=== PATIENT | male | born 1980 | race Caucasian/White ===

== ENCOUNTER 2022-05-19 13:46 | Emergency (ER) | payer MEDICAID ==
[2022-05-19] MEDS ORDERED: buprenorphine/naloxone 8MG-2MG SUBlingual film SL ONE (14:40)
== END 2022-05-19 15:00 ==
LOC: ER 13:46
DX: F11.23 Opioid dependence with withdrawal (principal); F19.90 Other psychoactive substance use, unspecified, uncomplicated
CPT/HCPCS: 99281; 99283

== ENCOUNTER 2022-09-26 12:58 | Emergency (ER) | payer MEDICAID ==
[~2022-09-26] VITALS: Ht 180.3 cm; Wt 77.3 kg
[2022-09-26 13:26] VITALS: BP 148/94
[2022-09-26] MEDS ORDERED: BUPR1FIL3 SL (13:52)
--- NOTE | 2022-09-26 14:06 | NUR ---
Met with patient in regards to prescription for Suboxone. Patient has been on Suboxone for a year and needs another prescription. Patient is changing MAT providers and needs a prescription until he is seen. I gave patient information for [facility] and for Dr Caicedo at [facility]. I talked to his provider Alexandra Slade and she will give him the RX for a week. Patient has my card and will call me if he has any questions.
== END 2022-09-26 14:07 | disposition home or self-care (01) ==
LOC: ER 12:58
DX: F11.20 Opioid dependence, uncomplicated (principal); F17.200 Nicotine dependence, unspecified, uncomplicated; Z79.899 Other long term (current) drug therapy
CPT/HCPCS: 99283

== ENCOUNTER 2022-11-01 08:14 | Emergency (ER) | payer MEDICAID ==
[~2022-11-01] VITALS: Ht 180.3 cm; Wt 81.0 kg
[2022-11-01 08:29] VITALS: BP 133/84
[2022-11-01] MEDS ORDERED: buprenorphine/naloxone 8MG-2MG SUBlingual film SL STA (10:02)
[2022-11-02] MEDS ORDERED: BUPR1FIL3 SL ×2 (09:09→09:36)
[2022-11-02] MEDS ORDERED: BUPR1TAB45 SL (09:40)
== END 2022-11-01 10:49 | disposition home or self-care (01) ==
LOC: ER 08:14
DX: F11.20 Opioid dependence, uncomplicated (principal)
CPT/HCPCS: 99283

== ENCOUNTER 2022-11-02 08:17 | Emergency (ER) | payer MEDICAID ==
[~2022-11-02] VITALS: Ht 188 cm; Wt 86.4 kg
[2022-11-02 08:40] VITALS: BP 124/89
[2022-11-02] MEDS ORDERED: BUPR1FIL3 SL ×2 (09:09→09:36)
[2022-11-02] MEDS ORDERED: BUPR1TAB45 SL (09:40)
[2022-11-03] MEDS ORDERED: buprenorphine/naloxone 8MG-2MG SUBlingual film SL SCH (08:00)
== END 2022-11-02 10:21 | disposition home or self-care (01) ==
LOC: ER 08:25
DX: F11.90 Opioid use, unspecified, uncomplicated (principal); Z79.899 Other long term (current) drug therapy
CPT/HCPCS: 99283

== ENCOUNTER 2022-11-11 14:38 | Emergency (ER) | payer MEDICAID ==
[~2022-11-11] VITALS: Ht 180.3 cm; Wt 81.8 kg
[~2022-11-11 14:38] MED LIST: BUPR1TAB45 SL
[2022-11-11 14:46] VITALS: BP 122/79
--- NOTE | 2022-11-11 15:09 | NUR ---
Met with patient in regards to bridge program and to follow up on his appt with Elsa Mejia. Patient had intake appt today and will continue his MAT treatment there. Patient needs 1 day of Suboxone. I talked to Karri and we will dose him here.
[2022-11-11] MEDS ORDERED: BUPR1FIL3 SL (16:19)
== END 2022-11-11 16:31 | disposition home or self-care (01) ==
LOC: ER 14:39
DX: F11.99 Opioid use, unspecified with unspecified opioid-induced disorder (principal)
CPT/HCPCS: 99281

== ENCOUNTER 2024-04-02 17:09 | Inpatient (IN) | payer MEDICAID ==
[~2024-04-02] VITALS: Ht 180.3 cm; Wt 84.7 kg
[2024-04-02 21:15] VITALS: BP 127/78; PULSE 90; RESP 17; TEMP 98.3; O2SAT 98
[2024-04-02] MEDS ORDERED: BUPR1FIL20 SL (23:11)
[2024-04-02] MEDS ORDERED: mag hydrox/Alum hydrox/simeth 30ml oral suspension PO PRN (23:30)
[2024-04-02] MEDS ORDERED: magnesium hydroxide 30ml (MOM) UD suspension PO PRN (23:30)
[2024-04-02] MEDS ORDERED: acetaminophen 325mg tablet PO PRN (23:30)
[2024-04-02] MEDS ORDERED: loperamide 2mg capsule PO PRN (23:30)
[2024-04-02] MEDS: acetaminophen 325mg tablet PO PRN (23:55)
[2024-04-02] MEDS: NICOTINE POLACRILEX 2 MG LOZENGE BC PRN (23:56)
[2024-04-02] MEDS: buprenorphine/naloxone 8MG-2MG SUBlingual film SL SCH (23:56)
[2024-04-03 07:30] VITALS: BP 101/69; PULSE 87; RESP 16; TEMP 96.2; O2SAT 100
[2024-04-03 08:00] VITALS: BP 101/69; PULSE 87; RESP 16; TEMP 96.2; O2SAT 100
[2024-04-03 08:03] LABS: CHOL/HDL RATIO 2.1 (0.00-4.99); CHOLESTEROL 134 MG/DL (0-200); HDL CHOLESTEROL 65 MG/DL (35-60); LDL CHOLESTEROL 58 MG/DL (50-100); TRIGLYCERIDES 41 MG/DL (20-135)
[2024-04-03] MEDS: nicotine 21mg patch - 24 hr TD SCH (11:34)
[2024-04-03 15:32] VITALS: PULSE 98; RESP 16; O2SAT 98
[2024-04-03 19:00] VITALS: RESP 17; O2SAT 99
[2024-04-03 20:00] VITALS: BP 113/65; PULSE 84; RESP 17; TEMP 97.6; O2SAT 99
[2024-04-03] MEDS: traZODone 50mg tablet PO SCH (20:46)
[2024-04-03] MEDS: prazosin 1mg capsule PO SCH (20:46)
[2024-04-04 07:30] VITALS: BP 92/51; PULSE 56; RESP 18; TEMP 97.8; O2SAT 97
[2024-04-04] MEDS: ESCITALOPRAM 10 mg tablet 10 MG TABLET PO SCH (08:37)
[2024-04-04 08:45] VITALS: RESP 18; O2SAT 97
[2024-04-04] MEDS ORDERED: ondansetron 4mg rapidly disintigrating tab PO PRN (16:05)
[2024-04-04 19:00] VITALS: RESP 18; O2SAT 96
[2024-04-04 20:00] VITALS: BP 103/52; PULSE 60; RESP 18; TEMP 98.2; O2SAT 96
[2024-04-05 07:00] VITALS: BP 101/62; PULSE 70; RESP 16; TEMP 98.5; O2SAT 95
[2024-04-05] MEDS ORDERED: ESCI-8 PO (15:35)
[2024-04-05] MEDS ORDERED: NICO-687 TD (15:35)
[2024-04-05] MEDS ORDERED: NICO-907 BC (15:35)
[2024-04-05] MEDS ORDERED: TRAZ-251 PO (15:35)
[2024-04-05] MEDS ORDERED: PRAZ1CAP5 PO (15:41)
== END 2024-04-05 16:56 | disposition home or self-care (01) | DRG 751 ==
LOC: ADULT MH 17:09
PROVIDERS: ADMIT Psychiatry & Neurology Psychiatry; ATTEND Psychiatry & Neurology Psychiatry
DX: F33.2 Major depressive disorder, recurrent severe without psychotic features (principal); F19.10 Other psychoactive substance abuse, uncomplicated; F43.10 Post-traumatic stress disorder, unspecified; Z20.822 Contact with and (suspected) exposure to COVID-19; G47.00 Insomnia, unspecified; J45.909 Unspecified asthma, uncomplicated; F41.9 Anxiety disorder, unspecified; K21.9 Gastro-esophageal reflux disease without esophagitis; Z87.891 Personal history of nicotine dependence; Z79.899 Other long term (current) drug therapy
CPT/HCPCS: 36415; 80061; 83721; 87081; 94760

== ENCOUNTER 2025-04-26 11:04 | Emergency (ER) | payer MEDICAID ==
[~2025-04-26] VITALS: Ht 180.3 cm; Wt 79.5 kg
[~2025-04-26 11:04] MED LIST changes: +BUPR1FIL20 SL; -BUPR1TAB45 SL; +ESCI-8 PO; +NICO-687 TD; +NICO-907 BC; +PRAZ1CAP5 PO; +TRAZ-251 PO
[2025-04-26 11:19] VITALS: BP 129/84; PULSE 95; RESP 14; O2SAT 97
[2025-04-26] MEDS ORDERED: BUPR1FIL3 SL (13:03)
--- NOTE | 2025-04-26 13:03 | Physician Documentation ---
HPI ~ General Chief Complaint: Medication Request Stated Complaint: BRIDGE PROGRAM Time Seen by MD: 11:35 History of Present Illness HPI Comments Patient is seen today with complaints of opioid use disorder stating he has a clean date of March 06. Patient states he has used heroin for 30 years but has been clean from heroin for over 50 days now. Patient states his last dose of Suboxone was about two weeks ago and has already set up an appointment for MAC therapy with [facility] and just needs to be bridged until the appointment in three days. Patient states his cravings are high currently. Patient denies any chest pain or shortness of breath or abdominal pain or nausea, vomiting, diarrhea. Patient has no other concern or complaint at this time. Medication Reconciliation Allergies: Coded Allergies: Penicillins (Verified Allergy, Unknown, 04/02/24) Scheduled Buprenorphine HCl/Naloxone HCl (Buprenorphine-Nalox 8-2Mg Film), 1 SL TID, (Reported) Escitalopram Oxalate (Escitalopram Oxalate), 20 MG PO DAILY Nicotine 21 MG Patch* (Habitrol 21 MG Patch*), 1 PATCH TD DAILY Prazosin Hcl (Prazosin Hcl), 1 MG PO HS Trazodone HCl (Trazodone HCl), 100 MG PO HSMR1 Scheduled PRN Nicotine Polacrilex (Nicotine Lozenge), 2 MG BC Q2H PRN for NICOTINE CRAVING Past Medical History Past Medical History: No Pertinent History Past Surgical History: noncontributory Alcohol Use: None Drug Use: none, other Lives with: S/O Lives In: Home Occupation: other Review of Systems Constitutional: Denies: chills, fever, weakness Eyes: Denies: pain, blurred vision ENT: Denies: ear pain, nose pain, throat pain, mouth pain Respiratory: Denies: cough, shortness of breath Cardiovascular: Denies: chest pain, palpitations Gastrointestinal: Denies: abdominal pain, nausea, vomiting Genitourinary: Denies: burning, dysuria Male Genitalia: Denies: penile discharge, testicular pain Neurological: Denies: headache, dizziness Musculoskeletal: Denies: pain, swelling Integumentary: Denies: rash, lesions Allergic/Immunologic: Denies: hives, itching Hematologic/Lymphatic: Denies: no symptoms reported Psychiatric: Denies: depression, anxiety Physical Exam Physical Exam Vital Signs: Temperature: 99.0, Heart Rate: 95, Respiratory Rate: 14, BP: 129/84, Pulse Oximetry: 97, Weight: 79.550 Oxygen Flow Rate: 0 Physical Exam General: Awake and Alert, no acute distress. HEENT: Conjunctiva pink, Sclera clear, Mucus Membranes moist. Neck: Supple without masses and tenderness. Resp: Unlabored. Lungs clear to auscultation bilaterally. Heart: Regular Rate and rhythm, normal S1 and S2 without murmur, rub or gallop. Abdomen: Soft and non tender no organomegaly Extremities: No cyanosis,clubbing or edema. Skin: Warm and Dry. Progress Results/Orders Results/Orders Vital Signs 04/26/25 11:19 Temp 99.0 Pulse 95 Resp 14 B/P (MAP) 129/84 Pulse Ox 97 O2 Flow Rate 0 Medical Decision Making Findings Patient is seen today with complaints of opioid use disorder stating he has a clean date of March 06. Patient states he has used heroin for 30 years but has been clean from heroin for over 50 days now. Patient states his last dose of Suboxone was about two weeks ago and has already set up an appointment for MAC therapy with [facility] and just needs to be bridged until the appo [facility] in three days. Patient states his cravings are high currently. Patient denies any chest pain or shortness of breath or abdominal pain or nausea, vomiting, diarrhea. Patient has no other concern or complaint at this time. Patient is adamant and confirms that he has not had any opiate since his last dose of Suboxone two weeks ago. Patient states his last illicit opiate was over 50 days ago. Dose of Suboxone 8/2 mg film, sublingual one film in the ED given today. Prescription of Suboxone 8/2 mg films, one film sublingual t.i.d. for three days sent to patient pharmacy. Patient will keep appointment with [facility] and will return to ED with any worsening, concerning or changing symptoms. Departure Disposition: 01 HOME / SELF CARE / HOMELESS Impression: Primary Impression: Opiate dependence Qualified Codes: F11.20 - Opioid dependence, uncomplicated Condition: Improved Discharge Instructions: Medicine Refill at the Emergency Department Additional Instructions: Patient is adamant and confirms that he has not had any opiate since his last dose of Suboxone two weeks ago. Patient states his last illicit opiate was over 50 days ago. Dose of Suboxone 8/2 mg film, sublingual one film in the ED given today. Prescription of Suboxone 8/2 mg films, one film sublingual t.i.d. for three days sent to patient pharmacy. Patient will keep appointment with [facility] and will return to ED with any worsening, concerning or changing symptoms. Referrals: NO PRIMARY CARE PROVIDER (PCP) Prescriptions Buprenorphine Hcl/Naloxone Hcl (Suboxone 8 Mg-2 Mg Sl Film) 8 Mg-2 Mg Film 1 STRIP SL TID for 3 Days, #9 STRIP Prov: TRAE PUGH 04/26/25 Signature Scribe Signature: No scribe Attestation: no Scribe TRAE PUGH PAC April 26, 2025 13:03
[2025-04-26] MEDS: buprenorphine/naloxone 8MG-2MG SUBlingual film SL STA (13:12)
[2025-04-26 13:28] VITALS: TEMP 99
== END 2025-04-26 13:30 | disposition home or self-care (01) ==
LOC: ER 11:06
DX: F11.20 Opioid dependence, uncomplicated (principal); Z88.0 Allergy status to penicillin; Z79.899 Other long term (current) drug therapy
CPT/HCPCS: 99283

== ENCOUNTER 2025-05-30 16:41 | Emergency (ER) | payer MEDICAID ==
[~2025-05-30] VITALS: Ht 177.8 cm; Wt 72.3 kg
[2025-05-30 16:42] VITALS: BP 132/84; PULSE 104; RESP 15; O2SAT 97
[2025-05-30] MEDS ORDERED: BUPR1FIL7 SL (18:39)
--- NOTE | 2025-05-30 18:41 | Physician Documentation ---
HPI ~ General Chief Complaint: Medication Request Stated Complaint: "I NEED A BRIDGE FOR SUBOXONE" Time Seen by MD: 18:35 OK to notify your PCP?: No History of Present Illness HPI Comments 44-YEAR-OLD MALE WHO PRESENTS REQUESTING SUBOXONE REFILL. HE STATES HE TAKES OF THREE 8 MG STRIPS OF SUBOXONE DAILY. Without Medications Since: May 30, 2025 Medication Reconciliation Allergies: Coded Allergies: Penicillins (Verified Allergy, Unknown, 04/02/24) Scheduled Buprenorphine HCl/Naloxone HCl (Buprenorphine-Nalox 8-2Mg Film), 1 SL TID, (Reported) Escitalopram Oxalate (Escitalopram Oxalate), 20 MG PO DAILY Nicotine 21 MG Patch* (Habitrol 21 MG Patch*), 1 PATCH TD DAILY Prazosin Hcl (Prazosin Hcl), 1 MG PO HS Trazodone HCl (Trazodone HCl), 100 MG PO HSMR1 Scheduled PRN Nicotine Polacrilex (Nicotine Lozenge), 2 MG BC Q2H PRN for NICOTINE CRAVING Past Medical History Past Medical History: No Pertinent History Past Surgical History: noncontributory Alcohol Use: None Drug Use: none, other Lives with: S/O Lives In: Home Occupation: other Review of Systems All Other Systems at this time: Reviewed and Negative ROS As stated above in the HPI, otherwise all systems are reviewed and negative. Physical Exam Physical Exam Vital Signs: Temperature: 98.9, Source: Temporal, Heart Rate: 104, Respiratory Rate: 15, BP: 132/84, Pulse Oximetry: 97, Weight: 72.300 Physical Exam General: Alert, no apparent distress. Respiratory: Lungs clear, no respiratory distress. Cardiovascular: Regular rate and rhythm, no murmurs. Gastrointestinal: Soft, nontender, nondistended. Bowels sounds present. Neurologic: Oriented x4. Psychiatric: Normal mood and affect. Skin: Normal color, warm and dry. No edema, no ecchymosis. Progress Results/Orders Results/Orders Vital Signs 05/30/25 16:42 Temp 98.9 Pulse 104 Resp 15 B/P (MAP) 132/84 Pulse Ox 97 Medical Decision Making Findings I ADVISED THE PATIENT I AM NOT GOING TO MALE WITH A FEEL AN EXTENDED SCRIPT OF SUBOXONE. HOWEVERR, i WILL PROVIDE HIM WITH FOUR DAYS OF COVERAGE . Differential Dx:Considerations: Include: Adverse circumstances, Economic, Psychosocial, Medical services unavail., Medication refill, Medication non- compliance, Other Departure Disposition: HOME / SELF CARE / HOMELESS Impression: Primary Impression: General medical exam Additional Impressions: Polysubstance abuse Opiate dependence Condition: Stable Discharge Instructions: Medicine Refill at the Emergency Department Referrals: NO PRIMARY CARE PROVIDER (PCP) Prescriptions Buprenorphine HCl/Naloxone HCl (Suboxone 12 mg-3 mg Sl Film) 12 Mg-3 Mg Film 2 STRIP SL DAILY for 5 Days, #14 STRIP 0 Refills Prov: EMIL RECINOS NP 05/30/25 Education Educated: Patient Educated regarding: diagnosis Signature Scribe Signature: D Attestation: Scribed for Emergency,Department by Emil Recinos - MARY . 05/30/25 18:37 EMIL RECINOS NP May 30, 2025 18:41
[2025-05-30 18:48] VITALS: TEMP 98.9
== END 2025-05-30 18:49 | disposition home or self-care (01) ==
LOC: ER 16:42
DX: Z00.8 Encounter for other general examination (principal); F11.20 Opioid dependence, uncomplicated; F19.10 Other psychoactive substance abuse, uncomplicated; Z88.0 Allergy status to penicillin
CPT/HCPCS: 99281

== ENCOUNTER 2025-10-13 23:00 | Emergency (ER) | payer MEDICAID ==
[~2025-10-13] VITALS: Ht 180.3 cm; Wt 70.0 kg
[~2025-10-13 23:00] MED LIST changes: +BUPR1FIL7 SL
[2025-10-13 23:11] VITALS: BP 132/96; PULSE 119; RESP 15; O2SAT 96
--- NOTE | 2025-10-13 23:55 | Physician Documentation ---
HPI ~ General Chief Complaint: Medication Refill Stated Complaint: REQUESTING DETOX Time Seen by MD: 23:54 History of Present Illness HPI Comments Patient here requesting Suboxone. He states he missed his appointment today and just needs enough to get to that has resources tomorrow. No other complaints Medication Reconciliation Allergies: Coded Allergies: Penicillins (Verified Allergy, Unknown, 10/13/25) Scheduled Buprenorphine HCl/Naloxone HCl (Buprenorphine-Nalox 8-2Mg Film), 1 SL TID, (Reported) Buprenorphine HCl/Naloxone HCl (Suboxone 12 mg-3 mg Sl Film), 2 STRIP SL DAILY Escitalopram Oxalate (Escitalopram Oxalate), 20 MG PO DAILY Nicotine 21 MG Patch* (Habitrol 21 MG Patch*), 1 PATCH TD DAILY Prazosin Hcl (Prazosin Hcl), 1 MG PO HS Trazodone HCl (Trazodone HCl), 100 MG PO HSMR1 Scheduled PRN Nicotine Polacrilex (Nicotine Lozenge), 2 MG BC Q2H PRN for NICOTINE CRAVING Past Medical History Past Medical History: No Pertinent History Past Surgical History: noncontributory Alcohol Use: None Drug Use: none, other Lives with: S/O Lives In: Home Occupation: other Review of Systems ROS All review of systems negative except as per HPI Physical Exam Physical Exam Vital Signs: Temperature: 96.8, Source: Temporal, Heart Rate: 119, Respiratory Rate: 15, BP: 132/96, Pulse Oximetry: 96, Weight: 70.000 Physical Exam General: Patient is awake, alert, oriented x4 in no acute distress and well appearing.~ Head: Normocephalic and atraumatic. Eyes: Conjunctival normal. EOMI. PERRL. ENT: Mucous membranes moist. Neck: Supple, trachea is midline. Chest: Clear to auscultation bilaterally without rales, rhonchi, or wheezes. There is no accessory muscle use or retractions. Cardiac: Tachycardic and regular without murmurs, gallops, or rubs. Progress Results/Orders Results/Orders Vital Signs 10/13/25 23:11 Temp 96.8 Pulse 119 Resp 15 B/P (MAP) 132/96 Pulse Ox 96 Medical Decision Making Additional information obtaine: N/A Findings Patient here requesting Suboxone. We will give him Suboxone. Noted tachycardia however rest of the physical exam is reassuring he had not feel emergent labs or imaging is necessary given chief complaint Differential Dx:Considerations: Include: Adverse circumstances, Economic, Psychosocial, Medical services unavail., Medication refill, Medication non- compliance, Other Departure Disposition: 01 HOME / SELF CARE / HOMELESS Impression: Primary Impression: Opiate dependence Condition: Stable Discharge Instructions: Medicine Refill at the Emergency Department Referrals: NO PRIMARY CARE PROVIDER (PCP) Signature Scribe Signature: No scribe Attestation: The note accurately reflects work and decisions made by me.Sergio Purdy MD 10/13/25 23:58 SERGIO PURDY MD Oct 13, 2025 23:55
[2025-10-13 23:59] VITALS: TEMP 96.8
[2025-10-14] MEDS: buprenorphine/naloxone 8MG-2MG SUBlingual film SL ONE (00:03)
== END 2025-10-14 00:05 | disposition home or self-care (01) ==
LOC: ER 23:01
DX: F11.20 Opioid dependence, uncomplicated (principal); Z88.0 Allergy status to penicillin
CPT/HCPCS: 99283